=== PATIENT | female | born 1980 | race Caucasian/White ===

== ENCOUNTER 2022-09-26 09:11 | Emergency (ER) | payer MEDICAID ==
[~2022-09-26] VITALS: Ht 157.5 cm; Wt 77.0 kg
[~2022-09-26 09:11] MED LIST: LEVO100T PO
[2022-09-26 10:03] VITALS: BP 125/73
[2022-09-26] MEDS ORDERED: ALBUTEROL (0.083%) 2.5MG/3ML NEB HHN STA (14:18)
[2022-09-26] MEDS ORDERED: METHYLPREDNISOLONE SOD SUCC 125 MG/2 ML VIAL IM STA (14:18)
[2022-09-26] MEDS ORDERED: IPRATROPIUM BROMIDE (0.02%) 0.5MG/2.5ML NEB HHN STA (14:18)
[2022-09-26] MEDS ORDERED: CEFTRIAXONE SODIUM 1 G/VIAL IM ONE (14:30)
[2022-09-26] MEDS ORDERED: LIDOCAINE HCL 1% 20ML VIAL (Pyxis) INJ INFIL ONE (14:30)
[2022-09-26] MEDS ORDERED: ALBU18HF2 PO (15:21)
[2022-09-26] MEDS ORDERED: DEXTL PO (15:21)
[2022-09-26] MEDS ORDERED: AMOX1TAB16 MT (15:21)
== END 2022-09-26 15:52 | disposition home or self-care (01) ==
LOC: ER 09:11
DX: J18.9 Pneumonia, unspecified organism (principal); R06.02 Shortness of breath; J45.909 Unspecified asthma, uncomplicated; Z20.822 Contact with and (suspected) exposure to COVID-19; Z90.49 Acquired absence of other specified parts of digestive tract; Z86.39 Personal history of other endocrine, nutritional and metabolic disease
CPT/HCPCS: 71045; 87070; 87426; 87430; 94640; 96372; 99284; C9803; J0696; J2930; J3490; Z7610